=== PATIENT | male | born 1995 | race Caucasian/White ===

== ENCOUNTER 2018-03-23 09:14 | Outpatient (CLI) | payer OTHER ==
--- NOTE | 2018-03-23 10:49 | ULT ---
ULTRASOUND THYROID: History Abnormal labs: COMPARISON: None. FINDINGS: The isthmus measures 3 mm in AP dimension. The right lobe measures 5 x 1.8 x 1.8 cm and the left lob e measures 4.6 x 1.8 x 1.6 cm. No suspicious thyroid nodule. Normal background of vascularity. IMPRESSION: Normal examination. POS: YUDITH
== END 2018-03-23 09:15 | disposition home or self-care (01) ==
LOC: SCSULT 09:14
PROVIDERS: ATTEND Family Medicine
DX: R79.89 Other specified abnormal findings of blood chemistry (principal)
CPT/HCPCS: 76536

== ENCOUNTER 2018-09-23 13:17 | Emergency (ER) | payer OTHER ==
[2018-09-23] MEDS ORDERED: Dexamethasone 10 MG/ML VIAL ONE (13:34)
[2018-09-23] MEDS ORDERED: Bicillin LA 1.2 MILLION UNITS/2 ML SYRINGE ONE (13:34)
== END 2018-09-23 13:44 | disposition home or self-care (01) ==
LOC: SCSER 13:17
DX: J02.0 Streptococcal pharyngitis (principal)
CPT/HCPCS: 96372; 99282; J0561; J1100